=== PATIENT | female | born 1965 | race Two or more races ===

== ENCOUNTER 2024-07-08 21:18 | Inpatient (IN) | payer OTHER ==
[~2024-07-08] VITALS: Ht 167.6 cm; Wt 76.7 kg
[2024-07-08] MEDS: IV NS 0.9% 1,000 ML BAG IV ONE ×2 (21:30→23:30)
[2024-07-08 21:50] LABS: BASOPHILS % (AUTO) 0.2 % (0.0-2.0); HEMATOCRIT 29 % (33-45); LYMPHOCYTES # (AUTO) 0.2 K/uL (0.8-4.8); LYMPHOCYTES % (AUTO) 6.6 % (20.0-44.0); MEAN CORPUSCULAR HEMOGLOBIN 31 PG (26.0-33.0); MEAN CORPUSCULAR HGB CONC 35 g/dl (31.0-36.0); MEAN CORPUSCULAR VOLUME 89 fL (82-100); MONOCYTES # (AUTO) 0.1 K/uL (0.1-1.30); MONOCYTES % (AUTO) 3.3 % (2.0-12.0); NEUTROPHILS # (AUTO) 3.4 K/uL (1.8-8.9); NEUTROPHILS % (AUTO) 89.9 % (43.0-81.0); PLATELET COUNT (AUTO) 170 K/uL (150-450); RED BLOOD CELL COUNT(AUTO) 3.24 MIL/uL (4.0-5.2); RED CELL DISTRIBUTION WIDTH 13.1 % (11.5-15.0); WHITE BLOOD COUNT (AUTO) 3.8 K/uL (4.3-11.0)
[2024-07-08] MEDS: PIPERACILLIN /TAZOBACTAM 3.375 G in IV D5W 50 ML IV ONE (22:00)
[2024-07-08] MEDS: VANCOMYCIN 1 GM in IV D5W 250 ML IV ONE (22:00)
[2024-07-08 22:04] LABS: CALCIUM, SERUM 8.3 mg/dL (8.5-10.1); CARBON DIOXIDE 22 mmol/L (21-32); CHLORIDE 102 mmol/L (98-107); CREATININE 1.7 mg/dL (0.6-1.3); GLUCOSE 170 mg/dL (74-106); SODIUM SERUM 139 mmol/L (136-145); UREA NITROGEN, BLOOD 49 mg/dL (7-18)
[2024-07-08] MEDS ORDERED: VANCOMYCIN 1 GM /D5W 250 ML PB IV ONE (22:09)
[2024-07-08] MEDS ORDERED: PIPERACI/TAZO 3.375GM/D5W 50ML PB IV ONE (22:09)
[2024-07-08 22:10] LABS: ALANINE AMINOTRANSFERASE 12 U/L (12-78); ALBUMIN 1.9 g/dL (3.4-5.0); ALKALINE PHOSPHATASE 59 U/L (46-116); ASPARTATE AMINOTRANSFERASE 14 U/L (15-37); BILIRUBIN,DIRECT 0.3 mg/dL (0.0-0.2); BILIRUBIN,TOTAL 0.8 mg/dL (0.2-1.0); LIPASE 10 U/L (16-77); TOTAL PROTEIN, SERUM 6.4 g/dL (6.4-8.2)
[2024-07-08 22:14] LABS: INR 1.03 (0.91-1.10); PARTIAL THROMBOPLASTIN TIME 28.8 SEC (24.3-34.3); PROTHROMBIN TIME 10.9 SECS (9.2-11.1)
[2024-07-08] MEDS ORDERED: ACETAMINOPHEN ES 500 MG TABLET ONE (22:24)
[2024-07-08] MEDS: ACETAMINOPHEN ES 500 MG TABLET PO ONE (22:27)
[2024-07-08 22:33] LABS: LACTIC ACID 2.3 mmol/L (0.4-2.0)
[2024-07-08 22:43] LABS: ABG OXYGEN SATURATION 93.9 % (94.0-98.0); ABG PCO2 25.6 mmHg (32.0-45.0); ABG PH 7.437 (7.350-7.450); ABG PO2 70.6 mmHg (83.0-108.0); ABG TOTAL HEMOGLOBIN 10.7 G/dL (12.0-16.0); COHb 0.3 % (0.5-1.5); MetHb 0.2 % (0.0-1.5); O2Hb 93.4 % (94.0-97.0); SITE, ABG LEFT RADIAL
[2024-07-08 22:57] LABS: ADD URINE CULTURE NO; APPEARANCE,URINE CLEAR (CLEAR); BACTERIA,URINE Rare /HPF (None Seen); BILIRUBIN,URINE 1+ (NEGATIVE); BLOOD, URINE TRACE-INTA Ery/uL (NEGATIVE); COLOR,URINE YELLOW (YELLOW); KETONES,URINE 2+ mg/dL (NEGATIVE); LEUKOCYTE ESTERASE ,URINE NEGATIVE (NEGATIVE); NITRITE, URINE NEGATIVE (NEGATIVE); PH,URINE 5.5 (5.0-8.0); PROTEIN,URINE 2+ mg/dl (NEGATIVE); SQUAMOUS EPITHELIAL CELL,UR Few /HPF (None Seen); UGLUCOSE 3+ mg/dL (NEGATIVE); UROBILINOGEN,URINE 0.2 EU/dL (0.2); WBC,URINE 0-2 /HPF (0-3)
[2024-07-09] VITALS (46 sets, daily range): BP systolic 84–156; BP diastolic 45–68; TEMP 97.5–98.9; O2SAT 94–100
[2024-07-09 01:27] LABS: NEUTROPHILS % (MANUAL) 87 (42-76)
[2024-07-09 01:28] LABS: BASOPHILS % (MANUAL) 0 % (0.0-2.0); EOSINOPHILS % (MANUAL) 0 % (0-4); LYMPHOCYTES % (MANUAL) 8 % (16-48); MONOCYTES % (MANUAL) 5 % (0-11.0); PLATELET ESTIMATE ADEQUATE; STOMATOCYTES 1+
[2024-07-09] MEDS: IV LR 1000 ML 1,000 ML BAG IV ONE (02:50)
[2024-07-09] MEDS ORDERED: ONDANSETRON HCL/PF 4 MG/2 ML VIAL IVP PRN (03:00)
[2024-07-09] MEDS ORDERED: MAG HYDROX/AL HYDROX/SIMETH 30 ML UDC PO PRN (03:00)
[2024-07-09] MEDS ORDERED: PIPERACI/TAZO 3.375GM/D5W 50ML PB IV ONE (04:54)
[2024-07-09] MEDS: IV NS 0.9% 1,000 ML IV PRN (05:01)
[2024-07-09] MEDS: PIPERACILLIN /TAZOBACTAM 3.375 G in IV D5W 50 ML IV ONE (05:01)
[2024-07-09 05:03] LABS: BASOPHILS % (AUTO) 0.2 % (0.0-2.0); EOSINOPHILS % (AUTO) 0.3 % (0.0-6.0); HEMATOCRIT 27 % (33-45); HEMOGLOBIN 9.2 g/dL (11.5-14.8); LYMPHOCYTES # (AUTO) 0.4 K/uL (0.8-4.8); LYMPHOCYTES % (AUTO) 13.2 % (20.0-44.0); MEAN CORPUSCULAR HEMOGLOBIN 31 PG (26.0-33.0); MEAN CORPUSCULAR HGB CONC 34 g/dl (31.0-36.0); MEAN CORPUSCULAR VOLUME 91 fL (82-100); MONOCYTES # (AUTO) 0.1 K/uL (0.1-1.30); MONOCYTES % (AUTO) 2.8 % (2.0-12.0); NEUTROPHILS # (AUTO) 2.3 K/uL (1.8-8.9); NEUTROPHILS % (AUTO) 83.5 % (43.0-81.0); PLATELET COUNT (AUTO) 152 K/uL (150-450); RED BLOOD CELL COUNT(AUTO) 2.97 MIL/uL (4.0-5.2); WHITE BLOOD COUNT (AUTO) 2.7 K/uL (4.3-11.0)
[2024-07-09] MEDS: ENOXAPARIN SODIUM 40 MG/0.4 ML DISP.SYRIN SQ SCH (05:03)
[2024-07-09 05:19] LABS: CALCIUM, SERUM 7.7 mg/dL (8.5-10.1); CREATININE 1.7 mg/dL (0.6-1.3); POTASSIUM 3.1 mmol/L (3.5-5.1)
[2024-07-09] MEDS: PIPERACI/TAZO 3.375GM/D5W 50ML PB IV ONE (05:27)
[2024-07-09] MEDS: POTASSIUM CL. PREMIX PERIPHER. 50 ML IV SCH (06:11)
[2024-07-09] MEDS ORDERED: LISI40TA13 PO (08:53)
[2024-07-09] MEDS ORDERED: AMLO10TA4 PO (08:53)
[2024-07-09] MEDS ORDERED: ATOR20TA PO (08:53)
[2024-07-09] MEDS ORDERED: DEXTROSE 50%-WATER 50 ML DISP.SYRIN IV PRN (12:00)
[2024-07-09] MEDS: PIPERACILLIN /TAZOBACTAM 3.375 G in IV D5W 100 ML IV SCH (12:51)
[2024-07-09] MEDS: BLOOD SUGAR DIAGNOSTIC 1 EACH STRIP VI SCH (13:31)
[2024-07-09 13:43] LABS: CREATININE, URINE 122.5 MG/DL (30.0-125.0); URINE SODIUM, RANDOM < 5 mmol/l (40-220); URINE TOTAL PROTEIN 124.5 mg/dL (0-11.9)
[2024-07-09] MEDS: ACETAMINOPHEN 325 MG TABLET PO PRN (17:27)
[2024-07-09] MEDS: INSULIN REGULAR, HUMAN 100 UNIT/ML 3 ML VIAL SQ PRN (17:34)
[2024-07-09] MEDS ORDERED: NOREPINEPHRINE 8 MG in IV D5W 242 ML IV PRN (20:00)
[2024-07-09] MEDS: NOREPINEPHRINE 8MG/250ML RTU 250 ML IV ONE (20:04)
[2024-07-09] MEDS: NOREPINEPHRINE 8 MG in IV NS 0.9% 218 ML IV PRN (20:15)
[2024-07-09] MEDS ORDERED: VANCOMYCIN 1 GM in IV D5W 250ml IV SCH (22:00)
[2024-07-09] MEDS ORDERED: CEFEPIME 1 GM VIAL ONE (22:04)
[2024-07-09] MEDS ORDERED: LEVOFLOXACIN 250 MG /D5W 50 ML 100 ML IV ONE (22:05)
[2024-07-09] MEDS ORDERED: DOXYCYCLINE 100 MG VIAL ONE (22:07)
[2024-07-09] MEDS: CEFEPIME 1 GM in IV D5W 50 ML IV SCH (22:25)
[2024-07-09] MEDS: DOXYCYCLINE 100 MG in IV D5W 100 ML IV SCH (22:31)
[2024-07-09] MEDS: LEVOFLOXACIN 500 MG /D5W 100ML 500 MG in PREMIX 1 EA IV SCH (22:32)
[2024-07-09] MEDS: *INSULIN REGULAR(HUMULIN R)HUM 100 UNIT/ML VIAL SQ PRN (22:45)
[2024-07-10] VITALS (64 sets, daily range): BP systolic 103–163; BP diastolic 53–76; TEMP 98–100.4; O2SAT 95–100
[2024-07-10] MEDS ORDERED: CEFEPIME 1 GM VIAL ONE (02:52)
[2024-07-10 05:23] LABS: BASOPHILS % (AUTO) 0.2 % (0.0-2.0); EOSINOPHILS % (AUTO) 0.2 % (0.0-6.0); HEMATOCRIT 26 % (33-45); HEMOGLOBIN 8.8 g/dL (11.5-14.8); LYMPHOCYTES # (AUTO) 0.4 K/uL (0.8-4.8); LYMPHOCYTES % (AUTO) 5.1 % (20.0-44.0); MEAN CORPUSCULAR HEMOGLOBIN 31 PG (26.0-33.0); MEAN CORPUSCULAR HGB CONC 34 g/dl (31.0-36.0); MEAN CORPUSCULAR VOLUME 89 fL (82-100); MONOCYTES # (AUTO) 0.2 K/uL (0.1-1.30); MONOCYTES % (AUTO) 2.3 % (2.0-12.0); NEUTROPHILS # (AUTO) 8.1 K/uL (1.8-8.9); NEUTROPHILS % (AUTO) 92.2 % (43.0-81.0); PLATELET COUNT (AUTO) 226 K/uL (150-450); RED BLOOD CELL COUNT(AUTO) 2.88 MIL/uL (4.0-5.2); RED CELL DISTRIBUTION WIDTH 13.2 % (11.5-15.0); WHITE BLOOD COUNT (AUTO) 8.8 K/uL (4.3-11.0)
[2024-07-10 05:43] LABS: BILIRUBIN,TOTAL 0.3 mg/dL (0.2-1.0); CALCIUM, SERUM 7.6 mg/dL (8.5-10.1); CREATININE 1.3 mg/dL (0.6-1.3); MAGNESIUM 2.1 mg/dL (1.8-2.4); PHOSPHORUS 3.2 mg/dL (2.5-4.9); POTASSIUM 3.2 mmol/L (3.5-5.1); TOTAL PROTEIN, SERUM 5.5 g/dL (6.4-8.2)
[2024-07-10 05:47] LABS: ALBUMIN 1.2 g/dL (3.4-5.0)
[2024-07-10] MEDS: POTASSIUM CHLORIDE 20 MEQ TAB.PRT.SR PO SCH (10:17)
[2024-07-10 13:03] LABS: HIV-1 p24 ANTIGEN NON REACTIVE (NONREACTIVE); HIV-1/2 ANTIBODY NON REACTIVE (NONREACTIVE)
[2024-07-10] MEDS: CEFEPIME 2 GM in IV D5W 100 ML IV SCH (16:41)
[2024-07-10 18:22] LABS: IRON, SERUM 4 ug/dl (50-175)
[2024-07-10 18:29] LABS: TOTAL IRON BINDING CAPACITY < 36 ug/dl (250-450)
[2024-07-10 18:43] LABS: FERRITIN 522 ng/mL (8-388)
[2024-07-10] MEDS: LEVOFLOXACIN (250MG) 250 MG TABLET PO SCH (21:03)
[2024-07-11] VITALS (18 sets, daily range): BP systolic 133–160; BP diastolic 55–80; TEMP 98–99; O2SAT 95–100
[2024-07-11 04:08] LABS: CALCIUM, SERUM 7.8 mg/dL (8.5-10.1); CREATININE 0.9 mg/dL (0.6-1.3); POTASSIUM 3.1 mmol/L (3.5-5.1)
[2024-07-11] MEDS: GUAIFENESIN/D-METHORPHAN HB 5 ML UDC PO PRN (04:40)
[2024-07-11] MEDS: POTASSIUM CHLORIDE 20 MEQ TAB.PRT.SR PO SCH (09:31)
[2024-07-11 12:06] LABS: *SPE A/G RATIO 0.5 (0.7-1.7); *SPE ALBUMIN 1.5 g/dL (2.9-4.4); *SPE ALPHA-1-GLOBULIN 0.5 g/dL (0.0-0.4); *SPE ALPHA-2-GLOBULIN 0.9 g/dL (0.4-1.0); *SPE BETA GLOBULIN 0.6 g/dL (0.7-1.3); *SPE M-SPIKE Not Observed g/dL (Not Observed); *SPE PROTEIN TOTAL 4.5 g/dL (6.0-8.5)
[2024-07-11 23:06] LABS: PTH, INTACT 39 pg/mL (15-65)
[2024-07-12] VITALS: BP 155/67; TEMP 98.8; O2SAT 99
[2024-07-12 04:00] VITALS: BP 152/65; TEMP 100.2; O2SAT 99
[2024-07-12 07:26] LABS: CALCIUM, SERUM 7.6 mg/dL (8.5-10.1); CREATININE 0.8 mg/dL (0.6-1.3); POTASSIUM 3.2 mmol/L (3.5-5.1)
[2024-07-12 08:00] VITALS: BP 157/81; TEMP 97.6; O2SAT 97
[2024-07-12] MEDS: POTASSIUM CHLORIDE 20 MEQ TAB.PRT.SR PO SCH (10:59)
[2024-07-12 12:00] VITALS: BP 157/78; TEMP 100.2; TEMP 98; O2SAT 98
[2024-07-12 16:00] VITALS: BP 159/69; TEMP 98; O2SAT 98
[2024-07-12 20:00] VITALS: BP 160/75; TEMP 97.7; O2SAT 98
[2024-07-12 21:06] LABS: *MYCOPLASMA PNEUMONIAE IgG 278 U/mL (0-99); *MYCOPLASMA PNEUMONIAE IgM 822 U/mL (0-769)
[2024-07-12] MEDS: DOXYCYCLINE HYCLATE (100 MG) 100 MG TABLET PO SCH (21:57)
[2024-07-13] VITALS: BP 155/80; TEMP 97.9; O2SAT 97
[2024-07-13 04:00] VITALS: BP 161/67; TEMP 98; O2SAT 96
[2024-07-13 07:10] LABS: CALCIUM, SERUM 7.7 mg/dL (8.5-10.1); CREATININE 0.6 mg/dL (0.6-1.3); POTASSIUM 3.4 mmol/L (3.5-5.1)
[2024-07-13 08:00] VITALS: BP 152/72; TEMP 97.9; O2SAT 97
[2024-07-13 12:00] VITALS: BP 148/66; TEMP 99.7; O2SAT 98
[2024-07-13] MEDS: POTASSIUM CHLORIDE 20 MEQ TAB.PRT.SR PO SCH (12:27)
[2024-07-13 16:00] VITALS: BP 136/69; TEMP 98.1; O2SAT 96
[2024-07-13 20:00] VITALS: BP 151/73; TEMP 99.1; O2SAT 98
[2024-07-14] MEDS: AZITHROMYCIN 250 MG TABLET PO SCH (00:56)
[2024-07-14 04:00] VITALS: BP 148/76; TEMP 97.9; O2SAT 99
[2024-07-14 06:48] LABS: BASOPHILS % (AUTO) 0.4 % (0.0-2.0); EOSINOPHILS # (AUTO) 0.1 K/uL (0.0-0.7); EOSINOPHILS % (AUTO) 0.7 % (0.0-6.0); HEMATOCRIT 24 % (33-45); HEMOGLOBIN 8.4 g/dL (11.5-14.8); LYMPHOCYTES # (AUTO) 1.6 K/uL (0.8-4.8); LYMPHOCYTES % (AUTO) 15.8 % (20.0-44.0); MEAN CORPUSCULAR HEMOGLOBIN 31 PG (26.0-33.0); MEAN CORPUSCULAR HGB CONC 35 g/dl (31.0-36.0); MEAN CORPUSCULAR VOLUME 88 fL (82-100); MONOCYTES # (AUTO) 1.1 K/uL (0.1-1.30); MONOCYTES % (AUTO) 10.9 % (2.0-12.0); NEUTROPHILS # (AUTO) 7.4 K/uL (1.8-8.9); NEUTROPHILS % (AUTO) 72.2 % (43.0-81.0); PLATELET COUNT (AUTO) 301 K/uL (150-450); RED BLOOD CELL COUNT(AUTO) 2.72 MIL/uL (4.0-5.2); RED CELL DISTRIBUTION WIDTH 12.9 % (11.5-15.0); WHITE BLOOD COUNT (AUTO) 10.3 K/uL (4.3-11.0)
[2024-07-14 07:16] LABS: FERRITIN 423 ng/mL (8-388)
[2024-07-14 08:04] LABS: IRON, SERUM 16 ug/dl (50-175); TOTAL IRON BINDING CAPACITY 93 ug/dl (250-450)
[2024-07-14] MEDS ORDERED: GUAI5SYR PO (09:41)
[2024-07-14] MEDS ORDERED: AZIT250T PO (09:41)
[2024-07-14 12:47] LABS: BAND % (MANUAL) 2 % (0.0-5.0); LYMPHOCYTES % (MANUAL) 23 % (16-48); MONOCYTES % (MANUAL) 6 % (0-11.0); NEUTROPHILS % (MANUAL) 69 (42-76); PLATELET ESTIMATE ADEQUATE
[2024-07-14 12:48] LABS: ANISOCYTOSIS 1+
[2024-07-14] MEDS ORDERED: DIATR MEGLU/DIATRIZOATE SODIUM 120 ML BOTTLE (GASTROGRAPHIN) ONE (13:30)
== END 2024-07-14 12:54 | disposition home health service (06) | DRG 871 ==
LOC: ER 21:21 → ICU 07-09 00:59 → TELE1 07-11 18:38 → MEDSG1 07-13 11:42
PROVIDERS: ADMIT Nurse Practitioner Acute Care; ATTEND Nurse Practitioner Acute Care
PROC: 05HC33Z Insertion of Infusion Device into Left Basilic Vein, Percutaneous Approach (ICD-10-PCS; principal; 2024-07-09)
DX: A41.50 Gram-negative sepsis, unspecified (principal); E43 Unspecified severe protein-calorie malnutrition; J15.7 Pneumonia due to Mycoplasma pneumoniae; R65.21 Severe sepsis with septic shock; J96.01 Acute respiratory failure with hypoxia; N17.0 Acute kidney failure with tubular necrosis; E87.1 Hypo-osmolality and hyponatremia; A08.4 Viral intestinal infection, unspecified; E86.0 Dehydration; E88.09 Other disorders of plasma-protein metabolism, not elsewhere classified; Z68.27 Body mass index [BMI] 27.0-27.9, adult; D64.9 Anemia, unspecified; E11.9 Type 2 diabetes mellitus without complications; I10 Essential (primary) hypertension; E87.6 Hypokalemia; K82.8 Other specified diseases of gallbladder; M89.8X9 Other specified disorders of bone, unspecified site; D72.819 Decreased white blood cell count, unspecified; Z79.899 Other long term (current) drug therapy
CPT/HCPCS: 36415; 36600; 71045-TC; 71250-TC; 76770-TC; 80048-TC; 80053-TC; 80076-TC; 81001; 82550-TC; 82570-TC; 82607-TC; 82728-TC; 82803-TC; 82962-TC; 83540-TC; 83605-TC; 83690-TC; 83735-TC; 83970; 84100-TC; 84155; 84165; 84300-TC; 84484-TC; 85025-TC; 85730-TC; 86738; 86850-TC; 87040-TC; 87081-TC; 87806; 97110-TC; 97116-TC; 97530-TC; A4216; A4223; A6403; G0378; J0692; J1650; J1815; J1956; J2543; J3370; J3480; J3490; J7030; J7050; J7060; J7120; Q9963